=== PATIENT | male | born 1995 | race Caucasian/White ===

== ENCOUNTER 2019-08-01 11:32 | Emergency (ER) | payer MEDICAID, SELFPAY ==
[2019-08-01 11:40] VITALS: BP 148/101; PULSE 118; RESP 16; TEMP 36.6; O2SAT 98
--- NOTE | 2019-08-01 11:41 | ED.NAVMDI ---
HPI - Nausea/Vomiting/Diarrhea General Chief complaint: Nausea/Vomiting/Diarrhea Stated complaint: Diarrhea Time Seen by Provider: 08/01/19 11:40 Source: patient Mode of arrival: ambulatory Limitations: no limitations History of Present Illness HPI Narrative: Patient is a 23-year-old male who presents for evaluation of vomiting and diarrhea. Patient reports that he started feeling unwell this morning, had several episodes of nonbloody, nonbilious emesis as well as watery diarrhea. Patient states that he cooked hamburgers last night, but states they are very well done. No sick household contacts. Mild abdominal pain, cramping in nature, no severe pain, no right lower quadrant pain. No fever or chills. No history of abdominal surgeries. Patient does report he has been able to drink about a gallon of water this morning without vomiting. Related Data Allergies Allergy/AdvReac Type Severity Reaction Status Date / Time No Known Allergies Allergy Unknown Verified 08/01/19 11:46 Review of Systems Review of Systems: Narrative: CONSTITUTIONAL: Denies fever, chills, or sweats. EYES: Denies visual changes, redness, or discharge. ENT: Denies rhinorrhea, congestion, sore throat, or otalgia. CARDIOVASCULAR: Denies chest pain, palpitations, or edema. RESPIRATORY: Denies cough or dyspnea. GASTROINTESTINAL: Reports mild abdominal pain, nausea, vomiting, and diarrhea GENITOURINARY: Denies dysuria or hematuria. SKIN: Denies rash or itching. MUSCULOSKELETAL: Denies back pain, joint pain, or myalgia. NEUROLOGIC: Denies headache, numbness, or weakness. [facility] Past Medical History Medical History (Updated 08/01/19 @ 12:50 by Thuy Clarke MD) No pertinent past medical history Surgical History Surgical History (Updated 08/01/19 @ 12:50 by Thuy Clarke MD) No pertinent past surgical history Social History Social History (Updated 08/01/19 @ 12:51 by Thuy Clarke MD) Smoking status: Never smoker Alcohol intake: current Substance use: never Living arrangements: with family Gender identity (if verbalized by the patient): Male Exam Narrative: Exam Narrative: GENERAL: Awake, alert, conversant HEAD: Normocephalic, atraumatic. EYES: PERRLA and EOMI. ENT: Nares clear, no rhinorrhea or epistaxis. Mucous membranes moist. NECK: Supple. CHEST: No respiratory distress, breathing even and non labored HEART: Regular rate, sinus rhythm ABDOMEN:Non distended, non tender, no RLQ tenderness EXTREMITIES: Normal range of motion. No edema. SKIN: Warm, dry, no rash. NEURO:No focal deficits. Alert and oriented x3 Course Course Emergency Course: Patient presented for evaluation of vomiting, diarrhea and mild abdominal pain. At the time of initial assessment, ABCs are intact, vital signs notable for mild tachycardia. Laboratory results show minor leukocytosis, mild transaminitis. At this point, patient has no COVID-19 severe features that would warrant him for testing. He has no respiratory symptoms, we do know diarrhea, mild lymphopenia and a transaminitis can be associated with coronavirus, but also can be associated with dehydration and vomiting. No sign of pancreatitis based on normal lipase. No severe pain or right lower quadrant pain to suggest appendicitis. Patient without urinary symptoms. As patient is tolerating oral intake, I suspect this is likely viral in nature such as norovirus causing gastroenteritis type features. Patient advised to follow-up with a primary care physician. Patient was then discharged home. Vital Signs Vital signs: Vital Signs Temperature 36.6 C 08/01/19 11:40 Pulse Rate 118 H 08/01/19 11:40 Respiratory Rate 16 08/01/19 11:40 Blood Pressure 148/101 H 08/01/19 11:40 Pulse Oximetry 98 08/01/19 11:40 Temperature 36.6 C 08/01/19 11:40 Pulse Rate 118 H 08/01/19 11:40 Respiratory Rate 16 08/01/19 11:40 Blood Pressure 148/101 H 08/01/19 11:40 Pulse Oximetry 98
[2019-08-01] MEDS: SODIUM CHLORIDE 0.9% IV 1,000 ML 999 ML IV CONT (11:57)
[2019-08-01] MEDS: ONDANSETRON INJ 4 MG/2 ML VIAL IV PUSH (11:57)
[2019-08-01 11:59] LABS: Basophils Absolute Auto 0.1 K/mm3 (0.0-0.1); Basophils Percent Auto 0.5 % (0.2-1.2); Eosinophils Absolute Auto 0.1 K/mm3 (0-0.3); Eosinophils Percent Auto 0.7 % (0-4.4); Hematocrit 47.9 % (42.0-52.0); Hemoglobin 17.3 g/dL (14.0-18.0); Immature Granulocyte Absolute 0.03 K/mm3 (0.00-0.031); Immature Granulocyte Percent A 0.3 % (0-0.5); Lymphocytes Absolute Auto 1.92 K/mm3 (0.9-3.2); Lymphocytes Percent Auto 17.2 % (18.3-44.2); Mean Corpuscular HGB Conc 36.1 g/dl (32-36); Mean Corpuscular Hemoglobin 36.2 pg (26-34); Mean Corpuscular Volume 100.2 fl (80-100); Mean Platelet Volume 10.1 fl (7.4-10.4); Monocytes Absolute Auto 0.7 K/mm3 (0.1-0.6); Monocytes Percent Auto 6.4 % (2.6-8.5); Neutrophils Absolute Auto 8.3 K/mm3 (1.3-6.7); Neutrophils Percent Auto 74.9 % (45.5-73.1); Platelet Count Result 235 k/mm3 (150-375); Red Blood Count 4.78 M/mm3 (4.6-6.20); Red Cell Distribution Width 13.3 % (11.5-14.5); White Blood Count 11.1 K/mm3 (4.5-10.0)
[2019-08-01 12:13] LABS: Alanine Aminotransferase 80 U/L (4-50); Albumin Level 4.8 g/dL (3.5-5.1); Alkaline Phosphatase 95 U/L (38-126); Aspartate Amino Transferase 85 U/L (17-59); Bilirubin,Total 1.2 mg/dL (0.2-1.3); Blood Urea Nitrogen 6 mg/dL (9-20); Calcium 8.9 mg/dL (8.4-10.2); Carbon Dioxide 28 mmol/L (22-30); Chloride 102 mmol/L (98-107); Estimated CRCL calculation 148 ml/min; Estimated Glomerular Filt Rate > 60; Glucose 116 mg/dL (75-110); Lipase 45 U/L (23-300); Potassium 3.5 mmol/L (3.4-5.0); Sodium 139 mmol/L (137-145)
[2019-08-01 12:57] LABS: Add Urine Microscopic? YES; Appearance Urine Clear (Clear); Bilirubin Urine 2+ (Negative); Blood Urine Negative (Negative); Color Urine Amber (Yellow); Glucose Urine UA Negative (Negative); Ketones Urine Negative (Negative); Leukocyte Esterase Ur Negative LEU/UL (Negative); Mucus Urine Heavy /lpf; Nitrate Urine Negative (Negative); Protein Urine 2+ mg/dL (Negative); RBC Urine 0-2 /hpf (0-2); Squamous Epithelial Cell Urine Rare /hpf (Few); WBC Urine 0-3 /hpf
== END 2019-08-01 13:11 | disposition home or self-care (01) ==
PROVIDERS: Emergency Provider Emergency Medicine
DX: K52.9 Noninfective gastroenteritis and colitis, unspecified (principal)
CPT/HCPCS: 36415; 80053; 81001; 83690; 85025; 96361; 96374; 99284; J2405; J7030

== ENCOUNTER 2020-02-25 09:59 | Emergency (ER) | payer BC, SELFPAY ==
[2020-02-25 10:12] VITALS: BP 146/102; PULSE 121; RESP 16; TEMP 37; O2SAT 99
--- NOTE | 2020-02-25 10:17 | ED.URI ---
HPI - URI/Sore Throat General Chief Complaint: Upper Respiratory Infection Stated Complaint: SORE THROAT Time Seen by Provider: 02/25/20 10:17 Source: patient and RN notes reviewed Mode of arrival: ambulatory Limitations: no limitations History of Present Illness HPI Narrative: 24-year male presents with concern for sore throat. Reports history of sore throat that started on Tuesday. Reports pain with swallowing. He denies fever, shortness of breath, cough, rhinorrhea, nasal congestion. Denies any known exposure to anyone with strep or Covid. MD elicited complaint: sore throat Related Data Allergies Allergy/AdvReac Type Severity Reaction Status Date / Time No Known Allergies Allergy Unknown Verified 02/25/20 10:10 Review of Systems Review of Systems: Narrative: CONSTITUTIONAL: Denies malaise, chills, sweats, or fever. EYES: Denies visual changes, redness, or discharge. ENT: Denies rhinorrhea, congestion, sinus pain, otalgia. Reports sore throat. CARDIOVASCULAR: Denies chest pain, palpitations, or edema. RESPIRATORY: Denies cough or dyspnea. GASTROINTESTINAL: Denies abdominal pain, nausea, vomiting, diarrhea SKIN: Denies rash or itching. MUSCULOSKELETAL: Denies myalgia. NEUROLOGIC: Denies headache. All systems reviewed & are unremarkable except as noted in HPI and below PMFSH Past Medical History Medical History (Updated 02/25/20 @ 10:36 by Martha Carter NP) No pertinent past medical history Surgical History Surgical History (Updated 08/01/19 @ 12:50 by Thuy Clarke MD) No pertinent past surgical history Social History Social History (Updated 08/01/19 @ 12:51 by Thuy Clarke MD) Smoking status: Never smoker Alcohol intake: current Substance use: never Gender identity (if verbalized by the patient): Male Comments At time of signature, agree with nursing past medical, surgical, social and family history. There is no relevant family history pertinent to the presenting complaint Exam Narrative: Exam Narrative: GENERAL: Well-appearing, well-nourished, and in no acute distress. HEAD: Normocephalic EYES: PERRLA, conjunctivae clear ENT: Nares clear, turbinates pink, no discharge. Mucous membranes moist. TM pearly luna with sharp light reflex bilaterally; no tragal tenderness. Oropharynx erythematous without lesions. Left tonsil enlarged and with copious exudate, no drooling, no hoarseness, no trismus, uvula midline. NECK: Supple. No lymphadenopathy CHEST: Clear to auscultation, breath sounds equal. No wheezing, rhonchi, rales, or stridor. No respiratory distress, speaks in full sentences. HEART: Regular rate and rhythm. No murmur heard. SKIN: Warm, dry, no rash. NEURO: Alert and oriented x3. PSYCH: Normal mood and affect Course Course Emergency Course: Patient is aware of diagnosis, understands and agrees to treatment plan. Anticipatory guidance given. Patient agrees to follow-up as directed and is aware of reasons to seek care at the emergency department. Portions of this record may have been created with voice recognition software Vital Signs Vital signs: Vital Signs Temperature 98.6 F 02/25/20 10:12 Pulse Rate 121 H 02/25/20 10:12 Respiratory Rate 16 02/25/20 10:12 Blood Pressure 146/102 H 02/25/20 10:12 Pulse Oximetry 99 02/25/20 10:12 Temperature 98.6 F 02/25/20 10:12 Pulse Rate 121 H 02/25/20 10:12 Respiratory Rate 16 02/25/20 10:12 Blood Pressure 146/102 H 02/25/20 10:12 Pulse Oximetry 99 02/25/20 10:12 Reviewed. Pt has been instructed to follow up with his primary care provider within the next week regarding his elevated blood pressure today. MDM - URI/Sore Throat MDM Narrative Medical decision making narrative: Differential diagnosis considered: Mcintosh virus, strep pharyngitis, allergic rhinitis, upper respiratory tract infection, sinusitis, rhinosinusitis, nasopharyngitis. viral pharyngitis, otitis media, otitis externa, pneumonia, bronchitis,
== END 2020-02-25 10:38 | disposition home or self-care (01) ==
PROVIDERS: Emergency Provider Nurse Practitioner
DX: J02.0 Streptococcal pharyngitis (principal)
CPT/HCPCS: 87880; 99213; G0463

== ENCOUNTER 2022-05-10 14:02 | Emergency (ER) | payer BC, SELFPAY ==
[2022-05-10 14:09] VITALS: BP 147/107; PULSE 127; RESP 16; TEMP 36.8; O2SAT 97
--- NOTE | 2022-05-10 14:41 | ED.URI ---
HPI - URI/Sore Throat General Chief Complaint: Upper Respiratory Infection Stated Complaint: sore throat Time Seen by Provider: 05/10/22 14:42 Source: patient, RN notes reviewed and old records reviewed Mode of arrival: ambulatory Limitations: no limitations History of Present Illness HPI Narrative: 26-year-old male presents to the [facility] with complaints of a sore throat since Tuesday. Has taken ibuprofen. Denies any other symptoms. Denies fevers, chest pain, abdominal pain. No cough Patient is currently a smoker MD elicited complaint: sore throat Onset (ago): day(s) (2) Related Data Home Medications Medication Instructions Recorded Confirmed No Home Medications 05/10/22 05/10/22 Allergies Allergy/AdvReac Type Severity Reaction Status Date / Time No Known Allergies Allergy Unknown Verified 05/10/22 14:31 Review of Systems Review of Systems: All systems reviewed & are unremarkable except as noted in HPI and below Constitutional: Constitutional: Reports no additional constitutional complaints Eyes: Eyes: Reports no additional eye complaints ENT: Reports as per HPI and Reports sore throat Cardiovascular: Cardiovascular: Reports no additional cardiovascular complaints, Denies chest pain and Denies dyspnea Respiratory: Respiratory: Reports no additional respiratory complaints, Denies chest congestion, Denies cough and Denies dyspnea Gastrointestinal: Gastrointestinal: Reports no additional gastrointestinal complaints, Denies abdominal pain, Denies nausea and Denies vomiting Musculoskeletal: Musculoskeletal: Reports no additional musculoskeletal complaints Integumentary/Breasts: Skin/Breast: Reports system reviewed and no additional complaints, except as docu Neurologic: Reports system reviewed and no additional complaints, except as documented Psychiatric: Psychiatric: Reports no additional psychiatric complaints Allergic/Immunologic: Allergic/Immunologic: Reports no additional allergic/immunologic complaints [facility] Past Medical History Medical History (Updated 05/10/22 @ 17:41 by Martha York APRN) No pertinent past medical history Surgical History Surgical History No pertinent past surgical history Social History Social History Smoking status: Current every day smoker Alcohol intake: current Substance use: never Living arrangements: with family Gender identity (if verbalized by the patient): Male Comments At the time of my signature, I reviewed and agree with the nursing past medical, surgical, social, and family history. There is no relevant family history pertinent to the patient complaint. Exam Const: General: cooperative, healthy appearing, comfortable, no acute distress, well developed, alert and well nourished Nutritional Appearance: well nourished Orientation/consciousness: patient oriented x3 Limitations: no limitations HENMT: Head: normal to inspection Ears: hearing grossly normal bilaterally and external ears normal Face/Nose/Sinus: Normal external nose present, Normal nares present, Normal nasal mucous membranes and turbinates present and normal facial exam Face and sinus: normal facial exam Mouth: Yes Normal oral and palatal mucosa present, Yes lip normal and Yes moist mucous membranes Throat: posterior oropharynx normal and uvula midline Eyes: General: appearance normal, both eyes and all related structures Alignment and Position: alignment normal Periorbital: periorbital findings normal Conjunctivae: conjunctivae normal Pupils: Equal, round and reactive pupils present EOM: EOMs intact bilaterally Neck: Neck: normal visual inspection, full ROM, no lymphadenopathy and no meningeal signs Chest: Chest palpation & inspection: normal inspection of the chest Resp: Effort & Inspection: normal respiratory effort and able to speak in complete sentences
== END 2022-05-10 14:56 | disposition home or self-care (01) ==
PROVIDERS: Emergency Provider Nurse Practitioner
DX: J06.9 Acute upper respiratory infection, unspecified (principal); R09.82 Postnasal drip; F17.200 Nicotine dependence, unspecified, uncomplicated
CPT/HCPCS: 87081; 87880; 99213; G0463

== ENCOUNTER 2022-10-27 08:43 | Emergency (ER) | payer BC, SELFPAY ==
[2022-10-27 08:52] VITALS: BP 150/99; PULSE 113; RESP 16; TEMP 36.7; O2SAT 99
--- NOTE | 2022-10-27 08:55 | ED.EAR ---
HPI - Ear Problem General Chief complaint: Ear Stated complaint: right ear pain Time Seen by Provider: 10/27/22 08:55 History of Present Illness HPI Narrative: 27-year-old male presented for complaint of right ear pain with swallowing for 2 days. Taking occasional Motrin. Used hydrogen peroxide this morning and was advised by boskeli to get evaluated. Denies headache, n/v/d/f/c. Smokes 1ppd. Related Data Allergies Allergy/AdvReac Type Severity Reaction Status Date / Time No Known Allergies Allergy Unknown Verified 10/27/22 08:51 Review of Systems Review of Systems: CONSTITUTIONAL: Denies body aches, fever, chills, or sweats. EYES: Denies visual changes, redness, or discharge. ENT: Reports rhinorrhea, congestion, otalgia. CARDIOVASCULAR: Denies chest pain, palpitations, or edema. RESPIRATORY: Denies dyspnea. GASTROINTESTINAL: Denies abdominal pain, nausea, vomiting, or diarrhea. SKIN: Denies rash, itching, or wounds. MUSCULOSKELETAL: Denies back pain, joint pain, or myalgia. NEUROLOGIC: Denies headache [facility] Past Medical History Medical History No pertinent past medical history Surgical History Surgical History No pertinent past surgical history Social History Social History (Updated 10/27/22 @ 09:45 by Becky Jorgensen APRN) Smoking packs per day: 1 Smoking cigarettes per day: 20.0 Smoking status: Current every day smoker Alcohol intake: current Substance use: never Living arrangements: with family Gender identity (if verbalized by the patient): Male Exam Narrative: GENERAL: mildly Ill-appearing, no acute distress. EYES: conjunctivae clear ENT: Mucous membranes moist. TMs pearly luna with normal light reflex bilaterally; no tragal tenderness. Oropharynx severely erythematous without lesions. Tonsils enlarged 2+ with exudate bilaterally. No drooling, no hoarseness, no trismus, uvula midline. No tripod positioning, hot potato voice, or soft palate swelling. NECK: Supple. No lymphadenopathy CHEST: Clear to auscultation, breath sounds equal. No respiratory distress, speaks in full sentences. HEART: Regular rate and rhythm. No murmur heard. SKIN: Warm, dry, no rash. NEURO: Alert and oriented x3. Course Course Emergency Course: Patient is aware of diagnosis, understands and agrees to treatment plan. Anticipatory guidance given. Patient agrees to follow-up as directed and is aware of reasons to seek care at the emergency department. Portions of this record may have been created with voice recognition software Level of Care: Express Care Visit Vital Signs Vital signs: Vital Signs Temperature 98.0 F 10/27/22 08:52 Pulse Rate 113 H 10/27/22 08:52 Respiratory Rate 16 10/27/22 08:52 Blood Pressure 150/99 H 10/27/22 08:52 Pulse Oximetry 99 10/27/22 08:52 Oxygen Delivery Room Air 10/27/22 08:52 Temperature 98.0 F 10/27/22 08:52 Pulse Rate 113 H 10/27/22 08:52 Respiratory Rate 16 10/27/22 08:52 Blood Pressure 150/99 H 10/27/22 08:52 Pulse Oximetry 99 10/27/22 08:52 Oxygen Delivery Room Air 10/27/22 08:52 Medical Decision Making MDM Narrative Medical decision making narrative: Discussed physical exam findings c/w strep; not tested will treat based on PE and cc. Advised supportive measures and signs/symptoms to go to the ER. Pt is appropriate for outpt treatment and f/u. Differential Diagnosis Differential Diagnosis: Influenza, covid, sinusitis, OM, strep pharyngitis, URI otitis externa, TM rupture, cholesteatoma, foreign body, auricular perichondritis bullous myringitis, mastoiditis, eustachian tube dysfunction Vital Signs Vital Signs: Vital Signs Temperature 98.0 F 10/27/22 08:52 Pulse Rate 113 H 10/27/22 08:52 Respiratory Rate 16 10/27/22 08:52 Blood Pressure 150/99 H 10/27/22 08:52 Pulse Oximetry 99
== END 2022-10-27 09:08 | disposition home or self-care (01) ==
PROVIDERS: Emergency Provider Nurse Practitioner Family; PCP Family Medicine
DX: J02.9 Acute pharyngitis, unspecified (principal); F17.210 Nicotine dependence, cigarettes, uncomplicated
CPT/HCPCS: 99213; G0463